=== PATIENT | male | born 1980 | race Caucasian/White ===

== ENCOUNTER 2016-12-03 14:52 | Emergency (ER) | payer OTHER ==
--- NOTE | 2016-12-04 02:33 | ED CLINICAL REPORT ---
Clinical Report - Physicians/Mid Levels [facility] [address] [place] [address] 12/03/2016 14:55 Patient: ROJAS EUBANKS I Time Seen: 14:57; initial patient contact, initial documentation, patient care assumed. Arrived- By private vehicle. Historian- patient. HISTORY OF PRESENT ILLNESS Chief Complaint: EARACHE. Modifying factors. Not worsened by anything. Not relieved by anything. This started about 1 weeks ago and is still present. Location- right ear. The pain is described as mild. The patient has had ear pain and drainage. No hearing loss, nasal discharge or congestion, sinus pressure or complaint of foreign body in the ear. No ear trauma, recent barotrauma, tinnitus or sore throat. Similar symptoms previously: None. Recent medical care: Not recently seen/assessed. REVIEW OF SYSTEMS No fever or cough. All systems otherwise negative, except as recorded above. PAST HISTORY See nurses notes. PROBLEMS: Corneal Ulcer. Dental Abscess. Dental Pain. Animal Bite. Last Tetanus. Tetanus Status. Immunizations. --15:07 Viji Palomares R.N. ADDITIONAL SURGERIES: Ankle surgery. Hernia Repair. --15:07 Viji Palomares R.N. SOCIAL HISTORY Heavy tobacco smoker. Not exposed to second-hand smoke at home. No alcohol use or drug use. No recent travel. Is a local resident. FAMILY HISTORY Negative. ADDITIONAL NOTES The nursing notes have been reviewed with agreement regarding the chief complaint, HPI, ROS, PMH and patient medications and allergies. PHYSICAL EXAM Vital Signs: 12/03/2016 15:03 BP: 135/94. HR: 86. O2 saturation: 100%. Temp: 98.8 F. Pain level now: 0/10. Have been reviewed as normal and appear to be correct. Respiratory rate 18 regular- respiratory rate normal. Appearance: Alert. No acute distress. Eyes: Eyes normal inspection. Nose: Nose normal. Ear (right): There is mild swelling of the external canal and loss of tympanic membrane landmarks. There is bloody discharge in the external canal. The tympanic membrane is partly obscured by cerumen. Right ear abnormal. Right tympanic membrane normal. Ear (left): Left ear normal. Left tympanic membrane normal. Throat: Pharynx normal. Neck: Normal inspection. Neck supple. Respiratory: No respiratory distress. Skin: Skin warm and dry. Normal skin color. No rash. Normal skin turgor. Extremities: Extremities exhibit normal ROM. No lower extremity edema. Neuro: Oriented X 3. No motor deficit. No sensory deficit. PROGRESS AND PROCEDURES Patient counseled in person regarding the patient's stable condition and diagnosis. 15:19. Differential Diagnosis: Other possible considerations: aoe, aom, perforated tm, fb, cerumen impaction. Above considerations are based on history and physical exam. Differential diagnosis was discussed with patient. Disposition: Discharged home in good and unchanged condition (15:19). Condition: good and stable. CLINICAL IMPRESSION Acute hemorrhagic localized right otitis externa with cellulitis of the external canal. INSTRUCTIONS Warnings: GENERAL WARNINGS: Return or contact your physician immediately if your condition worsens or changes unexpectedly, if not improving as expected, or if other problems arise. Specifically return if problem worsens. Prescription Medications: Cortisporin otic suspension: Instill 4 drops into affected ear every 6 hours for 1 week. Dispense ten (10) mL. No refills. Substitution is permissible. Follow-up: Follow up with your doctor in about three days even if well. Call for an appointment. Summary of care provided to patient. Understanding of the discharge instructions verbalized by patient. (Electronically signed by Mesha Meyer A.R.N.P. 12/03/2016 16:43)
--- NOTE | 2016-12-04 02:33 | ED NURSING NOTES ---
Clinical Report - Nurses [facility] [address] [place] [address] 12/03/2016 14:55 Patient: ROJAS EUBANKS I TRIAGE Triage time 15:04 Dec 03 2016. Acuity: LEVEL 4. Chief Complaint: RIGHT EAR PAIN. Alert. No acute distress. --15:09 Viji Palomares R.N. 15:03 12/03/16. BP: 135/94. HR: 86. O2 saturation: 100%. Temp: 98.8 F. Pain level now: 0/10. --15:09 Viji Palomares R.N. Weight: 86.1 kg stated. Height/Length: 70 inches Per Patient. BMI: 27.2. --15:03 Viji Palomares R.N. Medications Methadone HCl Oral. --15:06 Viji Palomares R.N. Allergies Bactrim. Mild Cephalexin. Mild --15:06 Viji Palomares R.N. History Arrived by private vehicle. Historian: patient. Accompanied by family. Onset was gradual. Symptoms still present (about 1 weeks). He has had mild right-sided ear drainage. The ear drainage on the right has been associated with ear pain. No fever, nasal discharge, sore throat, sinus pain or headache. 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 PAST MEDICAL HX: Hearing loss. Immunizations: up-to-date. SOCIAL HX: Current every day heavy tobacco smoker (cigarette)- less than 1 pack per day. No alcohol use or drug use. SELF HARM ASSESSMENT: A self harm assessment was performed. The patient answered "no" to the question "Do you have thoughts of harming or killing yourself?". FALL RISK ASSESSMENT: Fall risk assessment completed. No fall risk identified. NUTRITIONAL RISK ASSESSMENT: The nutritional risk assessment revealed no deficiencies. FUNCTIONAL ASSESSMENT: Functional assessment: no impairments noted. LEARNING NEEDS ASSESSMENT: The learning needs assessment revealed no barriers. ABUSE ASSESSMENT: Abuse assessment: The patient was asked "Do you feel safe in your home?". SKIN INTEGRITY ASSESSMENT: Skin integrity risk assessment completed. No skin integrity risk identified. --15:09 Viji Palomares R.N. PROBLEMS: Corneal Ulcer. Dental Abscess. Dental Pain. Animal Bite. Last Tetanus. Tetanus Status. Immunizations. --15: Viji Palomares R.N. ADDITIONAL SURGERIES: Ankle surgery. Hernia Repair. --15:07 Viji Palomares R.N. Interventions ID and allergy band on patient. --15:09 Viji Palomares R.N. PHYSICAL ASSESSMENT GENERAL / NEURO / PSYCH: Alert. Appears in no acute distress. HEENT: No facial asymmetry noted. Inflammation and cerumen present in the right external auditory canal. Right-sided hearing deficit. RESPIRATORY: Respirations not labored. SKIN: Skin is warm and dry. --15:10 Viji Palomares R.N. NURSING PROGRESS NOTES Two patient identifiers checked. Call light placed in reach. Side rails up x 1. Bed placed in lowest position. Brakes of bed on. --15:10 Viji Palomares R.N. 15:12 12/03/16. BP: 142/70. HR: 102. RR: 17. O2 saturation: 100%. Pain level now: 0/10. --15:13 Viji Palomares R.N. DISPOSITION / DISCHARGE Departure time: 15:25 Dec 03 2016. Condition at departure: unchanged. The following issues were addressed: pain control. No learning barriers present. Discharge instructions provided and reviewed with the patient. Reviewed medication(s) side effects, precautions, dosing and course information. Reviewed referral to a primary care physician. Patient verbalized understanding. Written instructions provided in [place]utanese. The patient was discharged home and accompanied by family. He left the Emergency Department ambulatory and via private vehicle. Patient driving. --15:27 Viji Palomares R.N. 15:25 12/03/16. BP: 126/87. HR: 91. RR: 16. O2 saturation: 100%. Pain level now: 0/10. --15:27 Viji Palomares R.N. Locked/Released at 12/03/2016 15:57 by Viji Palomares R.N.
--- NOTE | 2016-12-04 02:33 | ED NURSING NOTES ---
Clinical Report - Nurses [facility] [address] [place] [address] 12/03/2016 14:55 Patient: ROJAS EUBANKS I TRIAGE Triage time 15:04 Dec 03 2016. Acuity: LEVEL 4. Chief Complaint: RIGHT EAR PAIN. Alert. No acute distress. --15:09 Viji Palomares R.N. 15:03 12/03/16. BP: 135/94. HR: 86. O2 saturation: 100%. Temp: 98.8 F. Pain level now: 0/10. --15:09 Viji Palomares R.N. Weight: 86.1 kg stated. Height/Length: 70 inches Per Patient. BMI: 27.2. --15:03 Viji Palomares R.N. Medications Methadone HCl Oral. --15:06 Viji Palomares R.N. Allergies Bactrim. Mild Cephalexin. Mild --15:06 Viji Palomares R.N. History Arrived by private vehicle. Historian: patient. Accompanied by family. Onset was gradual. Symptoms still present (about 1 weeks). He has had mild right-sided ear drainage. The ear drainage on the right has been associated with ear pain. No fever, nasal discharge, sore throat, sinus pain or headache. 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 PAST MEDICAL HX: Hearing loss. Immunizations: up-to-date. SOCIAL HX: Current every day heavy tobacco smoker (cigarette)- less than 1 pack per day. No alcohol use or drug use. SELF HARM ASSESSMENT: A self harm assessment was performed. The patient answered "no" to the question "Do you have thoughts of harming or killing yourself?". FALL RISK ASSESSMENT: Fall risk assessment completed. No fall risk identified. NUTRITIONAL RISK ASSESSMENT: The nutritional risk assessment revealed no deficiencies. FUNCTIONAL ASSESSMENT: Functional assessment: no impairments noted. LEARNING NEEDS ASSESSMENT: The learning needs assessment revealed no barriers. ABUSE ASSESSMENT: Abuse assessment: The patient was asked "Do you feel safe in your home?". SKIN INTEGRITY ASSESSMENT: Skin integrity risk assessment completed. No skin integrity risk identified. --15:09 Viji Palomares R.N. PROBLEMS: Corneal Ulcer. Dental Abscess. Dental Pain. Animal Bite. Last Tetanus. Tetanus Status. Immunizations. --15: Viji Palomares R.N. ADDITIONAL SURGERIES: Ankle surgery. Hernia Repair. --15:07 Viji Palomares R.N. Interventions ID and allergy band on patient. --15:09 Viji Palomares R.N. PHYSICAL ASSESSMENT GENERAL / NEURO / PSYCH: Alert. Appears in no acute distress. HEENT: No facial asymmetry noted. Inflammation and cerumen present in the right external auditory canal. Right-sided hearing deficit. RESPIRATORY: Respirations not labored. SKIN: Skin is warm and dry. --15:10 Viji Palomares R.N. NURSING PROGRESS NOTES Two patient identifiers checked. Call light placed in reach. Side rails up x 1. Bed placed in lowest position. Brakes of bed on. --15:10 Viji Palomares R.N. 15:12 12/03/16. BP: 142/70. HR: 102. RR: 17. O2 saturation: 100%. Pain level now: 0/10. --15:13 Viji Palomares R.N. DISPOSITION / DISCHARGE Departure time: 15:25 Dec 03 2016. Condition at departure: unchanged. The following issues were addressed: pain control. No learning barriers present. Discharge instructions provided and reviewed with the patient. Reviewed medication(s) side effects, precautions, dosing and course information. Reviewed referral to a primary care physician. Patient verbalized understanding. Written instructions provided in [place]i. The patient was discharged home and accompanied by family. He left the Emergency Department ambulatory and via private vehicle. Patient driving. --15:27 Viji Palomares R.N. 15:25 12/03/16. BP: 126/87. HR: 91. RR: 16. O2 saturation: 100%. Pain level now: 0/10. --15:27 Viji Palomares R.N. Locked/Released at 12/03/2016 15:57 by Viji Palomares R.N.
--- NOTE | 2016-12-04 02:34 | ED DISCHARGE INSTRUCTIONS ---
Patient: ROJAS EUBANKS I General Instructions [facility] VisitID: [id number] [place] [address] 36y, M Registration Date/Time: 12/03/2016 Acute hemorrhagic localized right otitis externa with cellulitis of the external canal. INSTRUCTIONS Warnings: GENERAL WARNINGS: Return or contact your physician immediately if your condition worsens or changes unexpectedly, if not improving as expected, or if other problems arise. Specifically return if problem worsens. Prescription Medications: Cortisporin otic suspension: Instill 4 drops into affected ear every 6 hours for 1 week. Dispense ten (10) mL. No refills. Substitution is permissible. Follow-up: Follow up with your doctor in about three days even if well. Call for an appointment. Summary of care provided to patient. Understanding of the discharge instructions verbalized by patient. ADDITIONAL INFORMATION External Ear Infection [Adult] This is an infection in the ear canal due to an overgrowth of bacteria or fungus. This often occurs a few days after water gets trapped in the ear canal (swimming or bathing). It may also occur after cleaning too deeply in the ear canal with a cotton swab or other object. Sometimes hair care products get into the ear canal and cause this problem. There may be itching, redness, drainage, or swelling of the ear canal and temporary loss of hearing. Home Care: Do not try to clean the ear canal. That could push pus and bacteria deeper into the canal. Use the drops prescribed to reduce swelling and fight the infection. If an EAR WICK was placed in the ear canal, apply drops right onto the end of the wick. The wick will draw the medicine into the ear canal even if it is swollen closed. Do not allow water to get into your ear when bathing. No swimming during this time. A cotton ball may be loosely placed in the outer ear to absorb any drainage. You may use acetaminophen (Tylenol) or ibuprofen (Motrin, Advil) to control pain, unless another medicine was prescribed. [NOTE: If you have chronic liver or kidney disease or ever had a stomach ulcer or GI bleeding, talk with your doctor before using these medicines.] Preventing Future Infections: You can usually avoid this problem by using an eardrop that removes the water from your ear canal when you feel there is water trapped there. You can get these drops over the counter (Swim Ear, Aqua Ear and other brands). Follow Up with your doctor or this facility in one week or as instructed by our staff. Get Prompt Medical Attention if any of the following occur: Ear pain becomes worse or does not begin to improve after 3 days of treatment Redness or swelling of the outer ear occurs or gets worse Headache, painful or stiff neck, Feeling drowsy or confused Fever of 100.4F (38C) or higher, or as directed by your healthcare provider Seizure You have been given the following additional information: External Ear Infection (Adult) (Electronically signed by Mesha Meyer A.R.N.P. 12/03/2016 16:43)
--- NOTE | 2016-12-04 02:34 | ED MAR SUMMARY ---
..... Medication Administration Record [facility] [address] [place], [place] [id number] Patient: ROJAS EUBANKS I Visit ID: [id number] 36y, M Weight: 86.1 kg Height/Length: 70 in BMI: 27.2 ALLERGIES: Bactrim, Cephalexin
--- NOTE | 2016-12-04 02:34 | ED MED RECONCILIATION SUMMARY ---
Patient: ROJAS EUBANKS I Medication Reconciliation Report [facility] VisitID: [id number] [address] [place] [address] 36y, M Registration Date/Time: 12/03/2016 Weight: 86.1 kg Height/Length: 70 in. BMI: 27.2 ALLERGIES: Bactrim, Cephalexin The patient's Home Medications are listed below: THE FOLLOWING MEDICATIONS NEED TO BE RECONCILED: Methadone HCl Oral The source(s) of the original Home Medication information: Not obtained. The following Medications were given to the patient in the Emergency Department: None. The following Medications were prescribed to the patient: Cortisporin otic suspension: Instill 4 drops into affected ear every 6 hours for 1 week. Dispense ten (10) mL. No refills. Substitution is permissible. -- Mesha Meyer A.R.N.P.
--- NOTE | 2016-12-04 02:34 | ED MED RECONCILIATION SUMMARY ---
Patient: ROJAS EUBANKS I Medication Reconciliation Report [facility] VisitID: [id number] [address] [place] [address] 36y, M Registration Date/Time: 12/03/2016 Weight: 86.1 kg Height/Length: 70 in. BMI: 27.2 ALLERGIES: Bactrim, Cephalexin The patient's Home Medications are listed below: THE FOLLOWING MEDICATIONS NEED TO BE RECONCILED: Methadone HCl Oral The source(s) of the original Home Medication information: Not obtained. The following Medications were given to the patient in the Emergency Department: None. The following Medications were prescribed to the patient: Cortisporin otic suspension: Instill 4 drops into affected ear every 6 hours for 1 week. Dispense ten (10) mL. No refills. Substitution is permissible. -- Mesha Meyer A.R.N.P.
--- NOTE | 2016-12-04 02:34 | ED MAR SUMMARY ---
..... Medication Administration Record [facility] [address], [place] [id number] Patient: ROJAS EUBANKS I Visit ID: [id number] 36y, M Weight: 86.1 kg Height/Length: 70 in BMI: 27.2 ALLERGIES: Bactrim, Cephalexin
== END 2016-12-03 15:25 | disposition home or self-care (01) ==
LOC: ED SRH 14:52
DX: H60.11 Cellulitis of right external ear (principal); H92.21 Otorrhagia, right ear; F17.210 Nicotine dependence, cigarettes, uncomplicated